=== PATIENT | female | born 1985 | race Caucasian/White ===

== ENCOUNTER 2018-12-14 15:43 | Emergency (ER) | payer SELFPAY ==
[~2018-12-14] VITALS: Ht 157.5 cm; Wt 45.1 kg
[2018-12-14 15:49] VITALS: BP 100/66
--- NOTE | 2018-12-14 16:24 | NUR ---
Patient/Caregiver given discharge instructions and they have confirmed that they understand the instructions. Patient ambulatory with steady gait.
== END 2018-12-14 16:25 | disposition home or self-care (01) ==
LOC: ED 16:10
DX: K08.89 Other specified disorders of teeth and supporting structures (principal)
CPT/HCPCS: 99283